=== PATIENT | male | born 1990 | race Hispanic/Latino ===

== ENCOUNTER 2020-04-13 21:02 | Emergency (ER) | payer OTHER ==
[2020-04-14 12:49] LABS: SARS-CoV-2 MS2 Positive; SARS-CoV-2 N Gene Negative; SARS-CoV-2 S Gene Negative; SARS-CoV-2 orf1ab Negative
== END 2020-04-13 22:05 | disposition home or self-care (01) ==
LOC: ERS 21:02
DX: R51 Headache (principal); R05 Cough; R53.83 Other fatigue; Z20.828 Contact with and (suspected) exposure to other viral communicable diseases
CPT/HCPCS: 87635; 99283; U0003